=== PATIENT | female | born 1970 | race African-American/Black ===

== ENCOUNTER 2023-12-22 02:24 | Emergency (ER) | payer BC ==
[~2023-12-22] VITALS: Ht 162.6 cm; Wt 55.0 kg
[2023-12-22 02:26] VITALS: O2SAT 99
[2023-12-22 03:10] LABS: BASOPHILS % 0.3 % (0.0-2.0); EOSINOPHILS % 7.5 % (0.0-5.0); HEMATOCRIT. 35.6 % (36.0-48.0); HEMOGLOBIN. 11.8 g/dL (12.0-16.0); LYMPHOCYTES % 37.4 % (20.0-50.0); MEAN CORPUSCULAR HEMOGLOBIN 30.8 pg (28.0-32.0); MEAN CORPUSCULAR HGB CONC 33.3 g/dL (31.0-37.0); MEAN CORPUSCULAR VOLUME 92.5 fL (81.0-99.0); MEAN PLATELET VOLUME 7.6 fl (7.4-10.4); MONOCYTES % 5.3 % (2.0-8.0); NEUTROPHILS % 49.5 % (40.0-76.0); PLATELET 168 x1000/uL (130-400); RED BLOOD CELL COUNT 3.84 mill/uL (4.2-5.4); RED CELL DISTRIBUTION WIDTH 13.7 % (11.6-14.6); WHITE BLOOD COUNT 4.3 x1000/uL (4.5-11.0)
[2023-12-22 03:18] LABS: POTASSIUM 3.3 mEq/L (3.5-5.1)
[2023-12-22 03:20] LABS: CALCIUM 9.3 mg/dL (8.7-10.4)
[2023-12-22 03:24] LABS: CREATININE 1.3 mg/dL (0.6-1.0)
[2023-12-22] MEDS: SODIUM CHLORIDE 0.9% 1,000 ML IV ONE (03:41)
[2023-12-22] MEDS: POTASSIUM CHLORIDE 20MEQ/PACKET PO ONE (04:20)
[2023-12-22 06:30] VITALS: BP 97/63; PULSE 77; RESP 13; TEMP 97.6
== END 2023-12-22 06:30 | disposition home or self-care (01) ==
LOC: ER 02:38
DX: F12.929 Cannabis use, unspecified with intoxication, unspecified (principal); E87.6 Hypokalemia; E11.9 Type 2 diabetes mellitus without complications; Z85.9 Personal history of malignant neoplasm, unspecified
CPT/HCPCS: 99284; 96360; 71045; 80048; 85025; 36415; J7030